=== PATIENT | female | born 1970 | race Asian ===

== ENCOUNTER 2019-01-20 02:54 | Emergency (ER) | payer SELFPAY ==
[~2019-01-20] VITALS: Ht 154.9 cm; Wt 59.1 kg
[2019-01-20 03:22] LABS: APPEARANCE,URINE TURBID (CLEAR); GLUCOSE, URINE (UA) NEGATIVE (NEGATIVE); KETONES,URINE 15 mg/dL (NEGATIVE); LEUKOCYTE ESTERASE ,URINE LARGE (NEGATIVE); NITRATE,URINE POSITIVE (NEGATIVE); OCCULT BLOOD,URINE LARGE (NEGATIVE); PROTEIN,URINE SEE CONFIRM (NEGATIVE)
[2019-01-20 03:23] LABS: BILIRUBIN,URINE PRELIM. POSITIVE (NEGATIVE)
[2019-01-20 03:36] LABS: BACTERIA,URINE Few /HPF (None Seen); RBC,URINE Full Field /HPF (0-2); SQUAMOUS EPITHELIAL CELL,UR None Seen /LPF (None Seen); WBC,URINE >100 /HPF (0-5)
[2019-01-20 03:37] LABS: SULFOSALICYLIC ACID,URINE 1+ (Negative)
[2019-01-20] MEDS ORDERED: LIDOCAINE/PF 1% 2 ML VIAL IM ONE (03:45)
[2019-01-20] MEDS ORDERED: PHENAZOPYRIDINE HCL 100 MG TABLET PO ONE (03:45)
[2019-01-20] MEDS ORDERED: CefTRIAXone SODIUM 1 GM/VIAL IM ONE (03:45)
[2019-01-20 03:58] VITALS: BP 138/77
== END 2019-01-20 04:11 | disposition home or self-care (01) ==
LOC: EMS 02:54
DX: N39.0 Urinary tract infection, site not specified (principal); F17.210 Nicotine dependence, cigarettes, uncomplicated
CPT/HCPCS: 81001; 81002; 87077; 87086; 96372; 99283; J0696; J3490